=== PATIENT | male | born 1935 | race African-American/Black ===

== ENCOUNTER 2016-12-24 18:29 | Emergency (ER) | payer OTHER, MEDICARE ==
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
--- NOTE | 2016-12-24 19:11 | RADIOLOGY REPORT (SQ) ---
EXAM DESCRIPTION: FOOT LEFT COMPLETE COMPLETED DATE/TIME: 12/24/2016 6:57 pm REASON FOR STUDY: injury COMPARISON: None. NUMBER OF VIEWS: Three views. TECHNIQUE: AP, lateral and oblique radiographic images acquired of the left foot. LIMITATIONS: None. FINDINGS: MINERALIZATION: Normal. BONES: Nondisplaced transverse fracture at the base of the 5th metatarsal. Remainder of the bony str uctures are intact. Nonaggressive lucency in the proximal phalanx of the 1st toe. JOINTS: No effusions. SOFT TISSUES: No soft tissue swelling. No foreign body. OTHER: No other significant finding. IMPRESSION: NONDISPLACED TRANSVERSE FRACTURE AT THE BASE OF THE 5TH METATARSAL. TECHNICAL DOCUMENTATION: JOB ID: [id number] [employer]- All Rights Reserved
--- NOTE | 2016-12-24 19:12 | RADIOLOGY REPORT (SQ) ---
EXAM DESCRIPTION: KNEE BILATERAL 1-2 VIEWS COMPLETED DATE/TIME: 12/24/2016 6:57 pm REASON FOR STUDY: injury COMPARISON: None. NUMBER OF VIEWS: Two views. TECHNIQUE: AP and lateral radiographic images acquired of the right and left knee. LIMITATIONS: None. FINDINGS: MINERALIZATION: Normal. BONES: No acute fracture or dislocation. No worrisome bone lesions. JOINT: No effusion. Bilateral chondrocalcinosis. SOFT TISSUES: No soft tissue swelling. No radio-opaque foreign body. OTHER: No other significant finding. IMPRESSION: CHRONIC CHANGES. CHONDROCALCINOSIS. NO ACUTE TRAUMATIC FINDINGS. TECHNICAL DOCUMENTATION: JOB ID: [id number] [employer]- All Rights Reserved
[2016-12-24] MEDS ORDERED: OXYCODONE-ACETAMINOPHEN 5-325 MG TABLET PO ONE (20:11)
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
[2016-12-24 20:36] VITALS: BP 145/88
== END 2016-12-24 20:27 | disposition home or self-care (01) ==
LOC: ER 18:29
PROC: 2W3TX1Z Immobilization of Left Foot using Splint (ICD-10-PCS; principal; 2016-12-24)
DX: S92.352A Displaced fracture of fifth metatarsal bone, left foot, initial encounter for closed fracture (principal); M25.562 Pain in left knee; V09.3XXA Pedestrian injured in unspecified traffic accident, initial encounter; Y92.524 Gas station as the place of occurrence of the external cause
CPT/HCPCS: 99283

== ENCOUNTER 2017-09-10 14:18 | Emergency (ER) | payer MEDICARE, OTHER ==
[2017-09-10 14:24] VITALS: BP 158/76
--- NOTE | 2017-09-10 14:36 | ER Document Report ---
ED Medical Screen (RME) - General Chief Complaint: Foot Pain Stated Complaint: FOOT PAIN Time Seen by Provider: 09/10/17 14:28 Notes: RAPID MEDICAL EVALUATION DISCLOSURE I have seen this patient as part of a Rapid Medical Evaluation and, if applicable, placed any initially appropriate orders. The patient will be seen and fully evaluated, including a full history and physical exam, by a provider ( in Main ED or Fast Track) when a room becomes available. 81-year-old male here with complaints of pain in his left calf ongoing for the past few days. He was sent here by his doctor because they thought he might have a blood clot. He denies any previous history of blood clot. He has not tried anything for the pain. He denies any shortness of breath or chest pain. EXAM No appreciable left calf TTP CTAB RRR TRAVEL OUTSIDE OF THE [place] IN LAST 30 DAYS: No - Related Data Allergies/Adverse Reactions: No Known Allergies Allergy (Unverified 05/19/16 00:49) Past Medical History - Social History Frequency of alcohol use: None Drug Abuse: None - Past Medical History Cardiac Medical History: Reports: Hx Hypertension Renal/ Medical History: Denies: Hx Peritoneal Dialysis - Immunizations Immunizations up to date: Yes Hx Diphtheria, Pertussis, Tetanus Vaccination: Yes Physical Exam - Vital signs Vitals: Temp Pulse Resp BP Pulse Ox 98.0 F 59 L 16 158/76 H 98 09/10/17 14:22 09/10/17 14:22 09/10/17 14:22 09/10/17 14:22 09/10/17 14:22 Course - Vital Signs Vital signs: Temp Pulse Resp BP Pulse Ox 98.0 F 59 L 16 158/76 H 98 09/10/17 14:22 09/10/17 14:22 09/10/17 14:22 09/10/17 14:22 09/10/17 14:22 Doctor's Discharge - Discharge Referrals: ROBER SCHMID MD [Primary Care Provider] - Follow up as needed
[2017-09-10 14:57] LABS: ABSOLUTE EOSINOPHILS # (AUTO) 0.1 10^3/uL (0.0-0.6); ABSOLUTE LYMPHOCYTES (AUTO) 1.5 10^3/uL (0.5-4.7); ABSOLUTE MONOCYTES (AUTO) 0.3 10^3/uL (0.1-1.4); ABSOLUTE NEUT (AUTO) 2.9 10^3/uL (1.7-8.2); BASOPHILS % (AUTO) 0.6 % (0-2); EOSINOPHILS % (AUTO) 1.9 % (0-6); HEMATOCRIT 47.8 % (37.9-51.0); HEMOGLOBIN 15.7 g/dL (13.5-17.0); MEAN CORPUSCULAR HEMOGLOBIN 27.8 pg (27.0-33.4); MEAN CORPUSCULAR HGB CONC 32.8 g/dL (32.0-36.0); MEAN CORPUSCULAR VOLUME 85 fl (80-97); MONOCYTES % (AUTO) 6.5 % (3-13); PLATELET COUNT 329 10^3/uL (150-450); RED BLOOD COUNT 5.64 10^6/uL (4.35-5.55); TOTAL CELLS COUNTED % (AUTO) 100 %; WHITE BLOOD COUNT 4.9 10^3/uL (4.0-10.5)
[2017-09-10 15:10] LABS: ANION GAP 7 (5-19); BLOOD UREA NITROGEN 13 mg/dL (7-20); CALCIUM 9.8 mg/dL (8.4-10.2); CARBON DIOXIDE 31 mmol/L (22-30); CHLORIDE 105 mmol/L (98-107); GLUCOSE 86 mg/dL (75-110); POTASSIUM 4.2 mmol/L (3.6-5.0); SODIUM 143.1 mmol/L (137-145)
--- NOTE | 2017-09-10 15:50 | ER Document Report ---
ED Extremity Problem, Lower - General Chief Complaint: Foot Pain Stated Complaint: FOOT PAIN Time Seen by Provider: 09/10/17 14:28 Mode of Arrival: Ambulatory Information source: Patient Notes: 81-year-old male presented to ED for complaint of the left ongoing for several days. He states he went to his doctor and they sent him to the emergency room to be evaluated for blood clots. He denies any review his history of blood clots or any cardiac history. Patient denies smoking drinking any long plane trips any long car rides. He states he has been very active states he has been a little sedentary lately. Patient is alert and oriented respirations regular and unlabored and walking with a even steady gait. TRAVEL OUTSIDE OF THE [place] IN LAST 30 DAYS: No - HPI Patient complains to provider of: Pain. No: Injury, Swelling Location: Leg Occurred: Other Onset/Duration: Gradual - Days Quality of pain: Burning, Cramping Severity: Moderate Pain Level: 3 Recent injury: No Exacerbated by: Nothing Relieved by: Nothing - Related Data Allergies/Adverse Reactions: No Known Allergies Allergy (Unverified 05/19/16 00:49) Past Medical History - General Information source: Patient - Social History Smoking Status: Never Smoker Cigarette use (# per day): No Chew tobacco use (# tins/day): No Smoking Education Provided: No Frequency of alcohol use: None Drug Abuse: None Lives with: Family Family History: Reviewed & Not Pertinent Patient has suicidal ideation: No Patient has homicidal ideation: No - Past Medical History Cardiac Medical History: Reports: Hx Hypertension Pulmonary Medical History: Reports: None EENT Medical History: Reports: None Neurological Medical History: Reports: None Endocrine Medical History: Reports: None Renal/ Medical History: Reports: None Malignancy Medical History: Reports None GI Medical History: Reports: None Musculoskeltal Medical History: Reports None Skin Medical History: Reports None Psychiatric Medical History: Reports: None Traumatic Medical History: Reports: None Infectious Medical History: Reports: None Surgical Hx: Negative Past Surgical History: Reports: None - Immunizations Immunizations up to date: Yes Hx Diphtheria, Pertussis, Tetanus Vaccination: Yes Review of Systems - Review of Systems Constitutional: No symptoms reported EENT: No symptoms reported Cardiovascular: No symptoms reported Respiratory: No symptoms reported Gastrointestinal: No symptoms reported Genitourinary: No symptoms reported Male Genitourinary: No symptoms reported Musculoskeletal: Leg swelling Skin: No symptoms reported Hematologic/Lymphatic: No symptoms reported Neurological/Psychological: No symptoms reported Physical Exam - Vital signs Vitals: Temp Pulse Resp BP Pulse Ox 98.0 F 59 L 16 158/76 H 98 09/10/17 14:22 09/10/17 14:22 09/10/17 14:22 09/10/17 14:22 09/10/17 14:22 Interpretation: Normal - General General appearance: Appears well, Alert - HEENT Head: Normocephalic, Atraumatic Eyes: Normal Pupils: PERRL - Respiratory Respiratory status: No respiratory distress Chest status: Nontender Breath sounds: Normal Chest palpation: Normal - Cardiovascular Rhythm: Regular Heart sounds: Normal auscultation Murmur: No - Abdominal Inspection: Normal Distension: No distension Bowel sounds: Normal Tenderness: Nontender Organomegaly: No organomegaly - Back Back: Normal, Nontender - Extremities General upper extremity: Normal inspection, Nontender, Normal color, Normal ROM , Normal temperature General lower extremity: Normal inspection, Normal color, Normal ROM, Normal temperature, Normal weight bearing. No: Amanda's sign Calf: Tender. No: Abrasion, Deformity, Ecchymosis, Instability, Laceration, Unable to bear weight, Other Ankle: Normal, Tender. No: Abrasion, Deformity, Ecchymosis, Edema, Instability , Laceration, Limited ROM, Positive Conteh's test, Unable to bear weight Foot: Normal, Nontender - Neurological Neuro grossly intact: Yes Cognition: Normal Orientation: AAOx4 El Coma Scale Eye Opening: Spontaneous [place] Coma Scale Verbal: Oriented [place] Coma Scale Motor: Obeys Commands El Coma Scale Total: 15 Speech: Normal Motor strength normal: LUE, RUE, LLE, RLE Sensory: Normal - Psychological Associated symptoms: Normal affect, Normal mood - Skin Skin Temperature: Warm Skin Moisture: Dry Skin Color: Normal Course - Re-evaluation Re-evalutation: 09/10/17 17:18 Lab results and venous Doppler results discussed with Dr. Verdugo and with patient and . Written report of labs and venous Doppler given to patient for follow-up with their primary doctor. There is no acute findings at this time. Patient will be discharged home with instructions to continue his normal activity and medications and to call primary doctor on Wednesday for follow-up. Patient and were able to verbalize understanding of instructions and patient was discharged home. - Vital Signs Vital signs: Temp Pulse Resp BP Pulse Ox 98.0 F 59 L 16 158/76 H 98 09/10/17 14:22 09/10/17 14:22 09/10/17 14:22 09/10/17 14:22 09/10/17 14:22 - Laboratory Result Diagrams: 09/10/17 14:47 09/10/17 14:47 Laboratory results interpreted by me: 09/10/17 09/10/17 14:47 14:47 RBC 5.64 H RDW 15.0 H Carbon Dioxide 31 H - Diagnostic Test Radiology reviewed: Image reviewed, Reports reviewed Discharge - Discharge Clinical Impression: Leg pain, left Condition: Stable Disposition: HOME, SELF-CARE Additional Instructions: Leg Pain, Nonspecific We did not find an obvious cause for your leg pain. There's no sign of blood clot, infection, or other serious disease. Possible causes of vague leg pain include muscle or joint inflammation, disc disease in the lower back, pressure on the nerves in the back, or reduced blood flow through the arteries of the leg. Rest the leg. Pain can be eased with an antiinflammatory pain medicine such as ibuprofen. If the pain involves a small area, a heating pad might help. Call the doctor or return if the leg becomes swollen, weak, discolored, or increasingly painful, or if you develop any other significant change in your health. I have discussed your lab results and your Doppler results with you and I have given you a copy of the reports for the labs and the Doppler. You do not have a DVT. Please call your primary doctor on Wednesday and schedule a follow-up appointment and take these labs and Doppler results with you to this appointment. Continue your usual activity and medications until you follow-up with your primary doctor. FOLLOW-UP CARE: If you have been referred to a physician for follow-up care, call the physician s office for an appointment as you were instructed or within the next two days. If you experience worsening or a significant change in your symptoms, notify the physician immediately or return to the Emergency Department at any time for re-evaluation. Forms: Elevated Blood Pressure Referrals: ROBER SCHMID MD [Primary Care Provider] - 09/13/17
--- NOTE | 2017-09-10 16:30 | RADIOLOGY REPORT (SQ) ---
EXAM DESCRIPTION: VENOUS UNILATERAL LOWER COMPLETED DATE/TIME: 09/10/2017 4:20 pm REASON FOR STUDY: LLE pain; eval dVT COMPARISON: None. TECHNIQUE: Dynamic and static cameron scale and color images acquired of the left leg venous system. Se lected spectral images acquired with additional compression and augmentation maneuvers. The contralat eral common femoral vein and saphenofemoral junction were also imaged. Images stored on PACS. LIMITATIONS: None. FINDINGS: LEFT COMMON FEMORAL: Normal phasicity, compression and augmentation. No visualized echogenic material on g ray scale. No defects on color images. FEMORAL: Normal compression and augmentation. No visualized echogenic material on cameron scale. No defe cts on color images. POPLITEAL: Normal compression, augmentation. No visualized echogenic material on cameron scale. No defec ts on color images. CALF VESSELS: Normal compression, augmentation. No visualized echogenic material on cameron scale. No de fects on color images. GSV and SSV: Normal compression, augmentation. No visualized echogenic material on cameron scale. No def ects on color images. ANY DEEP VENOUS INSUFFICIENCY: No reflux on Valsalva ANY EVIDENCE OF POPLITEAL CYST: No. OTHER: No other significant finding. RIGHT COMMON FEMORAL VEIN AND SAPHENOFEMORAL JUNCTION: Normal phasicity, compression and augmentation. No visualized echogenic material on cameron scale. No de fects on color images. IMPRESSION: NO EVIDENCE OF DVT OR SVT IN THE LEFT LEG. TECHNICAL DOCUMENTATION: JOB ID: [id number] [employer]- All Rights Reserved Reading location - IP/workstation name: [facility]
== END 2017-09-10 17:37 | disposition home or self-care (01) ==
LOC: ER 14:18
DX: M79.672 Pain in left foot (principal); I10 Essential (primary) hypertension
CPT/HCPCS: 36415; 80048; 85025; 93971; 99284

== ENCOUNTER 2019-03-18 16:04 | Emergency (ER) | payer OTHER, MEDICARE ==
[2019-03-18 16:16] VITALS: BP 164/98
[2019-03-18] MEDS ORDERED: ACETAMINOPHEN 325 MG TABLET PO ONE (16:17)
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
== END 2019-03-18 18:26 | disposition home or self-care (01) ==
LOC: ER 16:04
DX: M54.2 Cervicalgia (principal); V87.7XXA Person injured in collision between other specified motor vehicles (traffic), initial encounter; I10 Essential (primary) hypertension
CPT/HCPCS: 70450; 72125; 99283

== ENCOUNTER 2019-07-29 17:26 | Inpatient (IN) | payer MEDICARE ==
--- NOTE | 2019-07-29 18:07 | ER Document Report ---
ED General - General Chief Complaint: Near Syncope Stated Complaint: NEAR SYNCOPE Primary Care Provider: ROBER SCHMID MD [Primary Care Provider] - Follow up as needed Information source: Patient Notes: Patient is an 83-year-old gentleman presenting to the emergency department chief complaint of near syncopal episode earlier today. Patient states he has been at his normal state of health. He was seen by his primary care provider a couple of days ago and they found nothing abnormal. Patient states today he was trying to have a bowel movement was a little constipated and ended up on the floor short of breath sweating generalized weakness and could not stand up on his own. Patient denies chest pain denies nausea or vomiting. TRAVEL OUTSIDE OF THE [place] IN LAST 30 DAYS: No - HPI Onset: This afternoon Onset/Duration: Sudden Quality of pain: No pain Severity: Moderate Pain Level: 0 Associated symptoms: Shortness of breath, Weakness, Other - Diaphoretic Exacerbated by: Denies Relieved by: Denies Similar symptoms previously: No Recently seen / treated by doctor: No - Related Data Allergies/Adverse Reactions: No Known Allergies Allergy (Unverified 05/19/16 00:49) Past Medical History - General Information source: Patient - Social History Smoking Status: Unknown if Ever Smoked Chew tobacco use (# tins/day): No Frequency of alcohol use: None Drug Abuse: None Lives with: Family Family History: Reviewed & Not Pertinent Patient has suicidal ideation: No Patient has homicidal ideation: No - Past Medical History Cardiac Medical History: Reports: Hx Hypertension EENT Medical History: Reports: Eyes - Glaucoma Renal/ Medical History: Denies: Hx Peritoneal Dialysis - Immunizations Immunizations up to date: Yes Hx Diphtheria, Pertussis, Tetanus Vaccination: Yes Review of Systems - Review of Systems Notes: REVIEW OF SYSTEMS: CONSTITUTIONAL : Per HPI EENT: Denies eye, ear, throat, or mouth pain or symptoms. Denies nasal or sinus congestion. CARDIOVASCULAR: Denies chest pain. RESPIRATORY: Denies cough, cold, or chest congestion. Denies shortness of br eath, difficulty breathing, or wheezing. GASTROINTESTINAL: Denies abdominal pain. Denies nausea, vomiting, or diarrhea. Denies constipation. GENITOURINARY: Denies difficulty urinating, painful urination, burning, frequency, or blood in urine. MUSCULOSKELETAL: Denies neck or back pain or joint pain or swelling. SKIN: Denies rash or skin lesions. HEMATOLOGIC : Denies easy bruising or bleeding. NEUROLOGICAL: Per HPI PSYCHIATRIC: Denies suicidal or homicidal ideations 10 Systems are negative unless otherwise specified above Physical Exam - Vital signs Vitals: Resp Pulse Ox 17 99 07/29/19 17:36 07/29/19 17:36 - Notes Notes: PHYSICAL EXAMINATION: GENERAL: Well-appearing, well-nourished and in no acute distress. HEAD: Atraumatic, normocephalic. EYES: Pupils equal round and reactive to light, extraocular movements intact, sclera anicteric, conjunctiva are normal. ENT: nares patent, oropharynx clear without exudates. Moist mucous membranes. NECK: Normal range of motion, supple without lymphadenopathy, no appreciable JVD LUNGS: Lungs clear to auscultation bilaterally and equal. No wheezes rales or rhonchi. HEART: Regular rate and rhythm without murmurs ABDOMEN: Soft, nontender, normal bowel sounds. No guarding, no rebound. No masses appreciated. EXTREMITIES: Active full range of motion, no pitting or edema. No cyanosis. 2+ pulses x4 NEUROLOGICAL: At time of evaluation the patient is alert and oriented x3, Glascow coma scale of 15, cranial nerves II through XII are grossly intact, sensations intact, motor is intact, there are no signs of nystagmus, there is no pronator drift, there is no facial asymmetry, tongue protrusion is midline, reflexes are equal and bilateral, patient answers all questions appropriately follows commands appropriately. SKIN: Warm, Dry, and intact. Normal turgor, no rashes or lesions noted. Course - Re-evaluation Re-evalutation: 07/29/19 19:33 Patient has remained stable while in emergency department. I have reviewed the patient's EKG laboratory and radiologic results. I find no significant abnormalities other than the patient's story of near syncope with diaphoresis and shortness of breath and weakness. Because of this and the patient's advanced age I am recommending to the hospitalist that the patient be admitted overnight for serial cardiac enzymes and observation. When speaking with the hospitalist he is agreeable with care plan as is the patient. - Vital Signs Vital signs: Temp Pulse Resp BP Pulse Ox 97.9 F 17 132/76 H 100 07/29/19 17:44 07/29/19 18:01 07/29/19 18:01 07/29/19 18:01 - Laboratory Result Diagrams: 07/29/19 17:35 07/29/19 17:35 Laboratory results interpreted by me: 07/29/19 07/29/19 17:35 17:35 RBC 6.34 H Hct 52.1 H MCH 26.8 L RDW 16.0 H Carbon Dioxide 31 H Anion Gap 4 L BUN 25 H - Diagnostic Test Radiology reviewed: Reports reviewed - EKG Interpretation by Md EKG shows normal: Sinus rhythm Rate: Normal Rhythm: NSR Voltage: Consistant with LVH Additional EKG results interpreted by me: 07/29/19 18:19 EKG shows change compared to prior EKG dated May 19, 2016 there is now Q waves present in lead III LVH is present. Discharge - Discharge Clinical Impression: Near syncope, Diaphoresis, Shortness of breath Condition: Stable Disposition: ADMITTED OBSERVATION Admitting Provider: Loco (Hospitalist) Unit Admitted: Telemetry Referrals: ROBER SCHMID MD [Primary Care Provider] - Follow up as needed
[2019-07-29 18:34] LABS: ABSOLUTE EOSINOPHILS # (AUTO) 0.2 10^3/uL (0.0-0.6); ABSOLUTE LYMPHOCYTES (AUTO) 1.2 10^3/uL (0.5-4.7); ABSOLUTE MONOCYTES (AUTO) 0.6 10^3/uL (0.1-1.4); ABSOLUTE NEUT (AUTO) 4.9 10^3/uL (1.7-8.2); BASOPHILS % (AUTO) 0.5 % (0-2); EOSINOPHILS % (AUTO) 2.3 % (0-6); HEMATOCRIT 52.1 % (37.9-51.0); LYMPHOCYTES % (AUTO) 17.1 % (13-45); MEAN CORPUSCULAR HEMOGLOBIN 26.8 pg (27.0-33.4); MEAN CORPUSCULAR HGB CONC 32.6 g/dL (32.0-36.0); MEAN CORPUSCULAR VOLUME 82 fl (80-97); MONOCYTES % (AUTO) 8.1 % (3-13); PLATELET COUNT 383 10^3/uL (150-450); RED BLOOD COUNT 6.34 10^6/uL (4.35-5.55); TOTAL CELLS COUNTED % (AUTO) 100 %; WHITE BLOOD COUNT 6.8 10^3/uL (4.0-10.5)
[2019-07-29 18:43] LABS: ALBUMIN 3.9 g/dL (3.5-5.0); ALKALINE PHOSPHATASE 78 U/L (38-126); ASPARTATE AMINO TRANSFERASE 32 U/L (17-59); BILIRUBIN,TOTAL 0.9 mg/dL (0.2-1.3); BLOOD UREA NITROGEN 25 mg/dL (7-20); CALCIUM 10.2 mg/dL (8.4-10.2); CHLORIDE 107 mmol/L (98-107); CREATINE KINASE 80 U/L (55-170); GLUCOSE 105 mg/dL (75-110); POTASSIUM 4.8 mmol/L (3.6-5.0)
[2019-07-29 18:49] LABS: CARBON DIOXIDE 31 mmol/L (22-30)
[2019-07-29 18:50] LABS: ANION GAP 4 (5-19)
--- NOTE | 2019-07-29 18:53 | RADIOLOGY REPORT (SQ) ---
EXAM DESCRIPTION: CHEST SINGLE VIEW IMAGES COMPLETED DATE/TIME: 07/29/2019 6:36 pm REASON FOR STUDY: syncope COMPARISON: 12/11/2010. NUMBER OF VIEWS: One view. TECHNIQUE: Single frontal radiographic view of the chest acquired. LIMITATIONS: None. FINDINGS: LUNGS AND PLEURA: No opacities, masses or pneumothorax. No pleural effusion. Attenuated bl ood vessels and flattened kayode-diaphragms. MEDIASTINUM AND HILAR STRUCTURES: No masses. Contour normal. HEART AND VASCULAR STRUCTURES: Heart normal in size. Normal vasculature. BONES: No acute findings. HARDWARE: None in the chest. OTHER: No other significant finding. IMPRESSION: COPD. NO ACUTE RADIOGRAPHIC FINDING IN THE CHEST. TECHNICAL DOCUMENTATION: JOB ID: [id number] 2010 [employer]- All Rights Reserved Reading location - IP/workstation name: [email or web address]
[2019-07-29 18:56] LABS: CREATINE KINASE MB 0.97 ng/mL (<4.55)
--- NOTE | 2019-07-29 18:57 | RADIOLOGY REPORT (SQ) ---
EXAM DESCRIPTION: CT HEAD WITHOUT IMAGES COMPLETED DATE/TIME: 07/29/2019 6:43 pm REASON FOR STUDY: syncope COMPARISON: 03/18/2019. TECHNIQUE: Axial images acquired through the brain without intravenous contrast. Images reviewed wi th bone, brain and subdural windows. Additional sagittal and coronal reconstructions were generated. Images stored on PACS. All CT scanners at this facility use dose modulation, iterative reconstruction, and/or weight based d osing when appropriate to reduce radiation dose to as low as reasonably achievable (ALARA). [facility]: Dose Right [facility]: CareDose [facility]: Dose Right [facility]: Teradose 4D [facility]: Smart [employer] RADIATION DOSE: CT Rad equipment meets quality standard of care and radiation dose reduction techniq ues were employed. CTDIvol: 53.2 mGy. DLP: 911 mGy-cm. mGy. LIMITATIONS: None. FINDINGS: VENTRICLES: Normal size and contour. CEREBRUM: No masses. No hemorrhage. No midline shift. No evidence for acute infarction. Normal gra y/white matter differentiation. No areas of low density in the white matter. CEREBELLUM: No masses. No hemorrhage. No alteration of density. No evidence for acute infarction. EXTRAAXIAL SPACES: No fluid collections. No masses. ORBITS AND GLOBE: No intra- or extraconal masses. Normal contour of globe without masses. CALVARIUM: No fracture. PARANASAL SINUSES: No fluid or mucosal thickening. SOFT TISSUES: No mass or hematoma. OTHER: No other significant finding. IMPRESSION: NORMAL BRAIN CT WITHOUT CONTRAST. EVIDENCE OF ACUTE STROKE: NO. COMMENT: Quality ID # [id number]: Final reports with documentation of one or more dose reduction techniques (e.g., Automated exposure control, adjustment of the mA and/or kV according to patient size, use of iterative reconstruction technique) TECHNICAL DOCUMENTATION: JOB ID: [id number] 2010 [employer]- All Rights Reserved Reading location - IP/workstation name: [email or web address]
[2019-07-29 18:58] LABS: TROPONIN I < 0.012 ng/mL
[2019-07-29] MEDS ORDERED: NORMAL SALINE 1000 ML 1,000 ML IV ONE (19:30)
[2019-07-29] MEDS ORDERED: IPRATROPIUM/ALBUTEROL 0.5-2.5 MG/3 ML AMPUL NEB PRN (19:31)
[2019-07-29] MEDS ORDERED: LACTULOSE SYRUP 20 GM/30 ML UDCUP PO ONE (19:31)
[2019-07-29] MEDS ORDERED: MAG HYDROX/AL HYDROX/SIMETH SUSP 30 ML UDCUP PO PRN (19:31)
[2019-07-29] MEDS ORDERED: MAGNESIUM HYDROXIDE SUSP 30 ML UDCUP PO PRN (19:31)
[2019-07-29] MEDS ORDERED: ACETAMINOPHEN 325 MG TABLET PO PRN (19:31)
[2019-07-29] MEDS ORDERED: MINERAL OIL ENEMA 133 ML PR ONE ×2 (19:31→21:55)
[2019-07-29 19:58] LABS: APPEARANCE,URINE SLIGHTLY-CLOUDY; BILIRUBIN,URINE NEGATIVE (NEGATIVE); COLOR,URINE YELLOW; GLUCOSE, URINE NEGATIVE (NEGATIVE); KETONES,URINE TRACE mg/dL (NEGATIVE); LEUKOCYTE ESTERASE,URINE NEGATIVE (NEGATIVE); NITRITE,URINE NEGATIVE (NEGATIVE); PROTEIN,URINE 100 mg/dL (NEGATIVE); URINE SPECIFIC GRAVITY 1.021; UROBILINOGEN,URINE NEGATIVE mg/dL (<2.0)
[2019-07-29] MEDS: NORMAL SALINE 1000 ML 1,000 ML IV PRN (21:24)
--- NOTE | 2019-07-29 21:44 | EKG REPORT ---
SEVERITY:- ABNORMAL ECG - SINUS RHYTHM LEFT ANTERIOR FASCICULAR BLOCK CONSIDER LEFT VENTRICULAR HYPERTROPHY : Confirmed by: Carisa Hale MD 29-Jul-2019 21:43:40
[2019-07-29 21:58] LABS: CREATINE KINASE MB 1.16 ng/mL (<4.55)
[2019-07-29 21:59] LABS: TROPONIN I < 0.012 ng/mL
[2019-07-29] MEDS: HEPARIN SOD (PORCINE) 5,000 UNIT/ML 1 ML VIAL SUBCUT SCH (22:25)
[2019-07-30] MEDS ORDERED: GLUCAGON,HUMAN RECOMB 1 MG INJ SUBCUT ONE (02:15)
[2019-07-30] MEDS ORDERED: IPRATROPIUM/ALBUTEROL 0.5-2.5 MG/3 ML AMPUL NEB ONE (02:15)
[2019-07-30] MEDS: NORMAL SALINE 1000 ML 1,000 ML IV PRN (02:48)
[2019-07-30] MEDS: HEPARIN SOD (PORCINE) 5,000 UNIT/ML 1 ML VIAL SUBCUT SCH ×3 (05:15→22:05)
[2019-07-30 05:55] LABS: ABSOLUTE EOSINOPHILS # (AUTO) 0.2 10^3/uL (0.0-0.6); ABSOLUTE LYMPHOCYTES (AUTO) 1.5 10^3/uL (0.5-4.7); ABSOLUTE NEUT (AUTO) 5.9 10^3/uL (1.7-8.2); LYMPHOCYTES % (AUTO) 17.5 % (13-45); MEAN CORPUSCULAR VOLUME 82 fl (80-97); TOTAL CELLS COUNTED % (AUTO) 100 %; WHITE BLOOD COUNT 8.3 10^3/uL (4.0-10.5)
[2019-07-30 06:04] LABS: ABSOLUTE MONOCYTES (AUTO) 0.7 10^3/uL (0.1-1.4); BASOPHILS % (AUTO) 0.5 % (0-2); EOSINOPHILS % (AUTO) 2.1 % (0-6); HEMATOCRIT 44.7 % (37.9-51.0); MEAN CORPUSCULAR HEMOGLOBIN 27.8 pg (27.0-33.4); MONOCYTES % (AUTO) 8.9 % (3-13); PLATELET COUNT 313 10^3/uL (150-450); RED BLOOD COUNT 5.46 10^6/uL (4.35-5.55); RED CELL DISTRIBUTION WIDTH 15.5 % (11.5-14.0)
[2019-07-30 06:06] LABS: HEMOGLOBIN 15.2 g/dL (13.5-17.0)
[2019-07-30 06:13] LABS: ANION GAP 5 (5-19); CALCIUM 9.1 mg/dL (8.4-10.2); CARBON DIOXIDE 26 mmol/L (22-30); CHLORIDE 110 mmol/L (98-107); GLUCOSE 75 mg/dL (75-110); POTASSIUM 3.9 mmol/L (3.6-5.0)
[2019-07-30 06:14] LABS: BLOOD UREA NITROGEN 21 mg/dL (7-20)
[2019-07-30 06:18] LABS: CREATINE KINASE MB 0.92 ng/mL (<4.55)
[2019-07-30 06:19] LABS: TROPONIN I < 0.012 ng/mL
--- NOTE | 2019-07-30 06:41 | PDOC H&P ---
History of Present Illness Admission Date/PCP: 07/29/19 19:43 ROBER SCHMID MD Patient complains of: Presyncope History of Present Illness: MORA ARREDONDO is a 83 year old male with a past medical history of constipation who sought evaluation by primary care whom he believes prescribed an unknown laxative. He presents today after an episode of near syncope after straining for a bowel movement. He complained of dizziness shortness of breath and inability to stand up. He denies previous episode, pain, nausea or vomiting. In the emergency department he is found to have an unremarkable work- up with exception to positive orthostatic blood pressure and a resting heart rate in the 40s. He is referred to the hospitalist for admission. Patient is a poor historian overall and admits to some [id number] medications of unknown name or purpose. Past Medical History Cardiac Medical History: Reports: Hypertension EENT Medical History: Reports: Eyes - Glaucoma Social History Information Source: Patient Lives with: Family Smoking Status: Never Smoker Drugs: None - Advance Directive Resuscitation Status: Full Code Family History Family History: Hypertension Parental Family History Reviewed: Yes Children Family History Reviewed: Yes Sibling(s) Family History Reviewed.: Yes Medication/Allergy Home Medications: Oxycodone HCl/Acetaminophen [Percocet 2.5-325 Mg Tablet] 1 tab PO Q6HP PRN #12 tablet 12/24/16 Wheelchair 1 each MC PRN PRN 14 Days #1 each 12/24/16 Cetirizine HCl [Zyrtec 10 mg Tablet] 1 tab PO DAILY #30 tablet 01/07/17 Allergies/Adverse Reactions: No Known Allergies Allergy (Unverified 05/19/16 00:49) Review of Systems Constitutional: ABSENT: chills, fever(s), headache(s), weight gain, weight loss Eyes: ABSENT: visual disturbances Ears: ABSENT: hearing changes Cardiovascular: ABSENT: chest pain, dyspnea on exertion, edema, orthropnea, palpitations Respiratory: ABSENT: cough, hemoptysis Gastrointestinal: PRESENT: constipation. ABSENT: abdominal pain, diarrhea, hematemesis, hematochezia, nausea, vomiting Genitourinary: ABSENT: dysuria, hematuria Musculoskeletal: ABSENT: joint swelling Integumentary: ABSENT: rash, wounds Neurological: ABSENT: abnormal gait, abnormal speech, confusion, dizziness, focal weakness, syncope Psychiatric: ABSENT: anxiety, depression, homidical ideation, suicidal ideation Endocrine: ABSENT: cold intolerance, heat intolerance, polydipsia, polyuria Hematologic/Lymphatic: ABSENT: easy bleeding, easy bruising Physical Exam Vital Signs: Temp Pulse Resp BP Pulse Ox 97.8 F 43 L 18 111/53 L 98 07/30/19 04:41 07/30/19 04:41 07/30/19 04:41 07/30/19 04:41 07/30/19 04:41 Intake & Output 07/28/19 07/29/19 07/30/19 11:59 11:59 11:59 Intake Total 1000 Balance 1000 Weight 54.1 kg General appearance: PRESENT: no acute distress, cooperative, thin, well- developed, well-nourished Head exam: PRESENT: atraumatic, normocephalic Eye exam: PRESENT: conjunctiva pink, EOMI, PERRLA. ABSENT: scleral icterus Ear exam: PRESENT: normal external ear exam Mouth exam: PRESENT: moist, tongue midline Neck exam: ABSENT: carotid bruit, JVD, lymphadenopathy, thyromegaly Respiratory exam: PRESENT: clear to auscultation argenis. ABSENT: rales, rhonchi, wheezes Cardiovascular exam: PRESENT: bradycardia, RRR. ABSENT: diastolic murmur, rubs, systolic murmur Pulses: PRESENT: normal dorsalis pedis pul Vascular exam: PRESENT: normal capillary refill GI/Abdominal exam: PRESENT: hypoactive bowel sounds, normal bowel sounds, soft. ABSENT: distended, guarding, mass, organolmegaly, rebound, tenderness Rectal exam: PRESENT: deferred Extremities exam: PRESENT: full ROM. ABSENT: calf tenderness, clubbing, pedal edema Neurological exam: PRESENT: alert, awake, oriented to person, oriented to place, oriented to time, oriented to situation, CN II-XII grossly intact. ABSENT: motor sensory deficit Psychiatric exam: PRESENT: appropriate affect, normal mood. ABSENT: homicidal ideation, suicidal ideation Skin exam: PRESENT: dry, intact, warm. ABSENT: cyanosis, rash Results Laboratory Results: 07/30/19 05:35 07/30/19 05:35 07/29/19 07/29/19 07/29/19 17:35 17:35 19:40 WBC 6.8 RBC 6.34 H Hgb 17.0 Hct 52.1 H MCV 82 MCH 26.8 L MCHC 32.6 RDW 16.0 H Plt Count 383 Seg Neutrophils % 72.0 Sodium 141.9 Potassium 4.8 Chloride 107 Carbon Dioxide 31 H Anion Gap 4 L BUN 25 H Creatinine 1.00 Est GFR ( Amer) > 60 Glucose 105 Calcium 10.2 Total Bilirubin 0.9 AST 32 Alkaline Phosphatase 78 Total Protein 7.0 Albumin 3.9 Urine Color YELLOW Urine Appearance SLIGHTLY-CLOUDY Urine pH 5.0 Ur Specific [place] 1.021 Urine Protein 100 H Urine Glucose (UA) NEGATIVE Urine Ketones TRACE H Urine Blood SMALL H Urine Nitrite NEGATIVE Ur Leukocyte Esterase NEGATIVE Urine WBC (Auto) 3 Urine RBC (Auto) 1 07/30/19 07/30/19 05:35 05:35 WBC 8.3 RBC 5.46 Hgb 15.2 Hct 44.7 MCV 82 MCH 27.8 MCHC 34.0 RDW 15.5 H Plt Count 313 Seg Neutrophils % 71.0 Sodium 140.9 Potassium 3.9 Chloride 110 H Carbon Dioxide 26 Anion Gap 5 BUN 21 H Creatinine 0.75 Est GFR ( Amer) > 60 Glucose 75 Calcium 9.1 Total Bilirubin AST Alkaline Phosphatase Total Protein Albumin Urine Color Urine Appearance Urine pH Ur Specific [place] Urine Protein Urine Glucose (UA) Urine Ketones Urine Blood Urine Nitrite Ur Leukocyte Esterase Urine WBC (Auto) Urine RBC (Auto) 07/29/19 07/29/19 07/29/19 17:35 17:35 21:00 Creatine Kinase 80 CK-MB (CK-2) 0.97 1.16 Troponin I < 0.012 < 0.012 07/29/19 07/30/19 07/30/19 21:00 05:35 05:35 Creatine Kinase 70 56 CK-MB (CK-2) 0.92 Troponin I < 0.012 Impressions: Chest X-Ray 07/29/19 18:20 IMPRESSION: COPD. NO ACUTE RADIOGRAPHIC FINDING IN THE CHEST. Head CT 07/29/19 18:20 IMPRESSION: NORMAL BRAIN CT WITHOUT CONTRAST. EVIDENCE OF ACUTE STROKE: NO. Assessment and Plan - Diagnosis (1) Bradycardia Is this a current diagnosis for this admission?: Yes Plan: Symptomatic sinus bradycardia with exertion, possibly secondary to medications, telemetry admission, follow-up cardiac enzymes, TSH and cardiology consult. (2) Constipation Is this a current diagnosis for this admission?: Yes Plan: Fleet enema, lactulose and Metamucil daily (3) Near syncope Is this a current diagnosis for this admission?: Yes Plan: Likely vasovagal strain of attempted bowel movement though clearly complicated by bradycardia. Follow-up telemetry, orthostatic blood pressures and cardiology consult - Time Time Spent with patient: 25-34 minutes - Inpatient Certification Medical Necessity: Need Close Monitoring Due to Risk of Patient Decompensation
[2019-07-30] MEDS: PSYLLIUM SEED-SF 5.85 GM PACKET PO SCH (09:42)
--- NOTE | 2019-07-30 10:52 | PDOC PROGRESS REPORT ---
Subjective Progress Note for:: 07/30/19 Subjective:: Today patient is doing well. However overnight patient has been noted to be bradycardic with heart rates mostly in the 30s to 40s. This morning patient's heart rate was in the 30s while awake. He was not symptomatic at the time. On my encounter this morning his heart rate had bounced back up to the 50s to 60s after drinking some caffeinated drinks. He endorses no shortness of breath lightheadedness or dizziness at this time. Reason For Visit: PRE SYNCOPE Physical Exam Vital Signs: Temp Pulse Resp BP Pulse Ox 98.0 F 36 L 18 127/62 H 99 07/30/19 07:34 07/30/19 07:34 07/30/19 07:34 07/30/19 07:34 07/30/19 07:34 Intake & Output 07/29/19 07/30/19 07/31/19 06:59 06:59 06:59 Intake Total 2350 240 Balance 2350 240 Weight 54.1 kg General appearance: PRESENT: no acute distress, cooperative Neck exam: ABSENT: JVD Respiratory exam: PRESENT: clear to auscultation argenis, unlabored. ABSENT: rhonchi, tachypnea, wheezes Cardiovascular exam: PRESENT: bradycardia, +S1, +S2. ABSENT: irregular rhythm, systolic murmur, tachycardia GI/Abdominal exam: PRESENT: soft. ABSENT: rebound, rigid, tenderness Neurological exam: PRESENT: alert, awake, oriented to person, oriented to place, oriented to time, oriented to situation Results Laboratory Results: 07/30/19 05:35 07/30/19 05:35 07/29/19 07/29/19 07/29/19 17:35 17:35 19:40 WBC 6.8 RBC 6.34 H Hgb 17.0 Hct 52.1 H MCV 82 MCH 26.8 L MCHC 32.6 RDW 16.0 H Plt Count 383 Seg Neutrophils % 72.0 Sodium 141.9 Potassium 4.8 Chloride 107 Carbon Dioxide 31 H Anion Gap 4 L BUN 25 H Creatinine 1.00 Est GFR ( Amer) > 60 Glucose 105 Calcium 10.2 Total Bilirubin 0.9 AST 32 Alkaline Phosphatase 78 Total Protein 7.0 Albumin 3.9 TSH Urine Color YELLOW Urine Appearance SLIGHTLY-CLOUDY Urine pH 5.0 Ur Specific [place] 1.021 Urine Protein 100 H Urine Glucose (UA) NEGATIVE Urine Ketones TRACE H Urine Blood SMALL H Urine Nitrite NEGATIVE Ur Leukocyte Esterase NEGATIVE Urine WBC (Auto) 3 Urine RBC (Auto) 1 07/30/19 07/30/19 07/30/19 05:35 05:35 05:35 WBC 8.3 RBC 5.46 Hgb 15.2 Hct 44.7 MCV 82 MCH 27.8 MCHC 34.0 RDW 15.5 H Plt Count 313 Seg Neutrophils % 71.0 Sodium 140.9 Potassium 3.9 Chloride 110 H Carbon Dioxide 26 Anion Gap 5 BUN 21 H Creatinine 0.75 Est GFR ( Amer) > 60 Glucose 75 Calcium 9.1 Total Bilirubin AST Alkaline Phosphatase Total Protein Albumin TSH 1.32 Urine Color Urine Appearance Urine pH Ur Specific [place] Urine Protein Urine Glucose (UA) Urine Ketones Urine Blood Urine Nitrite Ur Leukocyte Esterase Urine WBC (Auto) Urine RBC (Auto) 07/29/19 07/29/19 07/29/19 17:35 17:35 21:00 Creatine Kinase 80 CK-MB (CK-2) 0.97 1.16 Troponin I < 0.012 < 0.012 07/29/19 07/30/19 07/30/19 21:00 05:35 05:35 Creatine Kinase 70 56 CK-MB (CK-2) 0.92 Troponin I < 0.012 Impressions: Chest X-Ray 07/29/19 18:20 IMPRESSION: COPD. NO ACUTE RADIOGRAPHIC FINDING IN THE CHEST. Head CT 07/29/19 18:20 IMPRESSION: NORMAL BRAIN CT WITHOUT CONTRAST. EVIDENCE OF ACUTE STROKE: NO. Assessment and Plan - Diagnosis (1) Bradycardia Is this a current diagnosis for this admission?: Yes Plan: Symptomatic sinus bradycardia given near syncopal episode during defecation. Likely sinus node dysfunction. I have reviewed cardiac monitor technician today which indicates several episodes of sinus bradycardia into the 30s mostly and sometimes in the 40s while sleeping last night but also while awake this morning. He may meet indication for pacemaker due to this. TSH, troponin are normal. EKG shows sinus bradycardia with no evidence of AV block. Discussed case with cardiology and recommended echocardiogram. Patient currently trying to confirm his medications with his daughter but sounds like he only takes medication for BPH and one for constipation which are unlikely to contribute to bradycardia. Heart rate did respond adequately on ambulation this morning going into the 60s to a 70s. (2) Near syncope Is this a current diagnosis for this admission?: Yes Plan: Likely vasovagal strain of attempted bowel movement though clearly complicated by underlying sinus bradycardia. States that he is on medication for BPH but orthostatic vital signs have been done several times and have all been negative. Plan as above. (3) Constipation Qualifiers: Constipation type: unspecified constipation type Qualified Code(s): K59.00 - Constipation, unspecified Is this a current diagnosis for this admission?: Yes Plan: lactulose and Metamucil daily - Time Time Spent with patient: 15-24 minutes
--- NOTE | 2019-07-30 14:33 | XCELERA REPORT ---
[address] [address] Transthoracic Echocardiogram Report Name: MORA ARREDONDO Age: 83 yrs Gender: Male : 1935 Patient Status: Inpatient Patient Location: [address] [place], [place] [address] Study Date: 07/30/2019 10:12 AM Height: 66 in Weight: 119 lb BSA: 1.6 m2 Procedure: A complete two-dimensional transthoracic echocardiogram was performed (2D, M-mode, spectral and color flow Doppler). Study Quality: Good. Reason For Study: bradycardia. Dr. Burris to read Ordering Physician: DIANA DING Performed By: Yamilet Toledo Interpretation Summary The left ventricle is normal in size, thickness and function. Left ventricular systolic function is normal. The Ejection Fraction estimate is 50-55%. Doppler measurements suggest normal left ventricular diastolic function. The left ventricular wall motion is normal. There is no thrombus. Trace MR, trace TR, trace PI. No prior studies for comparison. MMode/2D Measurements & Calculations RVDd: 2.1 cm LVIDd: 4.6 cm FS: 21.6 % Ao root diam: 3.1 cm IVSd: 0.77 cm LVIDs: 3.6 cm EDV(Teich): Ao root area: 98.1 ml LVPWd: 0.96 cm 7.5 cm2 ESV(Teich): 55.0 ml EF(Teich): 43.9 % EDV(MOD-sp4): SV(MOD-sp4): 77.0 ml 43.7 ml ESV(MOD-sp4): 33.3 ml EF(MOD-sp4): 56.8 % Doppler Measurements & Calculations MV E max alexx: MV dec slope: Ao V2 max: LV V1 max P.1 cm/sec 94.7 cm/sec 1.9 mmHg MV A max alexx: 345.0 cm/sec2 Ao max PG: LV V1 max: 74.0 cm/sec MV dec time: 0.21 sec 3.6 mmHg 69.5 cm/sec MV E/A: 0.96 PA V2 max: TR max alexx: 45.3 cm/sec 260.0 cm/sec PA max PG: TR max P.5 mmHg 0.82 mmHg Left Ventricle The left ventricle is normal in size, thickness and function. Left ventricular systolic function is normal. The Ejection Fraction estimate is 50-55%. Doppler measurements suggest normal left ventricular diastolic function. The left ventricular wall motion is normal. There is no thrombus. Right Ventricle The right ventricle is normal in size, thickness and function. The right ventricular systolic function is normal. Atria The right atrium is normal. The left atrial size is normal. Mitral Valve The mitral valve is normal in structure and function. There is no mitral valve stenosis. There is a trace amount of mitral regurgitation. Aortic Valve The aortic valve is not well visualized secondary to technical limitations. There is no aortic valve stenosis. No aortic regurgitation is present. Tricuspid Valve The tricuspid is normal in structure and function. There is no tricuspid stenosis. There is a trace or physiologic amount of tricuspid regurgitation. Pulmonic Valve The pulmonic valve is not well seen, but is grossly normal. There is a trace amount of pulmonic regurgitation. Effusions There is no pericardial effusion. There is no pleural effusion. : DIANA DING Antonio
[2019-07-30] MEDS ORDERED: SCOPOLAMINE HYDROBROMIDE 1.5 MG PATCH.TD72 TD ONE (16:28)
[2019-07-30] MEDS ORDERED: SCOPOLAMINE HYDROBROMIDE 1.5 MG PATCH.TD72 ONE (16:53)
[2019-07-30] MEDS ORDERED: ATROPINE SULFATE INJ 1 MG/10 ML DISP.SYRIN IV PRN (17:49)
[2019-07-30] MEDS ORDERED: MONTELUKAST SODIUM 10 MG TABLET PO SCH (18:00)
[2019-07-30] MEDS ORDERED: TAMSULOSIN HCL 0.4 MG CAP.SR.24H PO SCH (18:00)
[2019-07-30] MEDS ORDERED: LATANOPROST 0.005% OPH SOLN 2.5 ML OU SCH (22:00)
[2019-07-31 05:43] LABS: BLOOD UREA NITROGEN 17 mg/dL (7-20); CALCIUM 9.5 mg/dL (8.4-10.2); GLUCOSE 87 mg/dL (75-110); PHOSPHORUS 3.1 mg/dL (2.5-4.5); POTASSIUM 4.8 mmol/L (3.6-5.0)
[2019-07-31 05:48] LABS: CARBON DIOXIDE 31 mmol/L (22-30); CHLORIDE 106 mmol/L (98-107)
[2019-07-31] MEDS: HEPARIN SOD (PORCINE) 5,000 UNIT/ML 1 ML VIAL SUBCUT SCH (05:49)
[2019-07-31 05:51] LABS: ANION GAP 2 (5-19)
[2019-07-31] MEDS ORDERED: ASPIRIN 81 MG TABLET, ENT COATED PO SCH (08:00)
[2019-07-31] MEDS ORDERED: FINASTERIDE 5 MG TABLET PO SCH (10:00)
[2019-07-31] MEDS ORDERED: FLUTICASONE NASAL SPRAY 50 MCG/SPRY 120 SPRAY/16 GM NASL SCH (10:00)
[2019-07-31] MEDS: PSYLLIUM SEED-SF 5.85 GM PACKET PO SCH (10:01)
--- NOTE | 2019-07-31 11:15 | PDOC CONSULTATION ---
Consultation Consult Date: 07/31/19 Attending physician:: DIANA DING Provider Consulted: VY FRAGA Consult reason:: Bradycardia History of Present Illness Admission Date/PCP: 07/29/19 19:43 ROBER SCHMID MD History of Present Illness: MORA ARREDONDO is a 83 year old male with a past medical history of constipation and prior evaluation for vasovagal syncope in 2017 who is consulted to our service for presyncope. The patient presented to [facility] after an episode of near syncope after trying to use the bathroom however the patient specifically denied to me any straining at the time. He complained of dizziness shortness of breath and inability to stand up. Since admission the patient has remained asymptomatic and without recurrence of index symptoms. His telemetry shows persistent sinus bradycardia even when the patient is awake. Physical exam on 07/31/2019: GENERAL: Pleasant and conversational. Oriented x3 with normal mood. Not in acute distress. Well groomed and well developed. HEENT: Normocephalic, atraumatic. Pupils equal. Sclerae anicteric. Oropharynx moist. NECK: No JVD. No carotid bruits. LUNGS: Clear to auscultation bilaterally. Normal respiratory effort without the use of accessory muscles or intercostal retractions. CARDIOVASCULAR: Bradycardic. Regular rate and rhythm, normal S1 and S2 without murmurs, rubs, or gallops. PMI not displaced. EXTREMITIES: No edema, no cyanosis, no clubbing. +2 pulses femoral and pedal pulses bilaterally. SKIN: No lesions or rashes. MUSCULOSKELETAL: No chest tenderness to palpation. NEUROLOGIC: Nonfocal. No gross sensory or motor deficits bilateral upper or lower extremities. Past Medical History Cardiac Medical History: Reports: Hypertension EENT Medical History: Reports: Eyes - Glaucoma Social History Lives with: Family Smoking Status: Never Smoker Drugs: None - Advance Directive Resuscitation Status: Full Code Family History Family History: Hypertension Parental Family History Reviewed: Yes Children Family History Reviewed: Yes Sibling(s) Family History Reviewed.: Yes Medication/Allergy Home Medications: Aspirin [Adult Low Dose Aspirin EC] 81 mg PO QAM 07/30/19 Carboxymethylcellulos/Glycerin [Refresh Relieva 0.5-0.9% Drop] 1 drop OU DAILYP PRN 07/30/19 Cyanocobalamin (Vitamin B-12) [Vitamin B-12] 100 mcg PO QAM 07/30/19 Finasteride [Proscar 5 mg Tablet] 5 mg PO DAILY 07/30/19 Fluticasone Propionate [Flonase Nasal [place] 50 Mcg/[place] 16 gm] 2 spray NASL DAILY 07/30/19 Latanoprost [Xalatan 0.005% Oph Soln 2.5 ml] 1 drop OU QHS 07/30/19 Montelukast Sodium [Singulair 10 mg Tablet] 10 mg PO QPM 07/30/19 Tamsulosin HCl [Flomax 0.4 mg Cap.sr] 0.4 mg PO QPM 07/30/19 Timolol Maleate [Timoptic 0.5% Oph Soln 5 ml] 1 drop OU BID 07/30/19 Allergies/Adverse Reactions: No Known Allergies Allergy (Unverified 05/19/16 00:49) Physical Exam Vital Signs: Temp Pulse Resp BP Pulse Ox 97.4 F 42 L 14 120/67 98 07/31/19 03:28 07/31/19 03:28 07/31/19 03:28 07/31/19 03:28 07/31/19 03:28 Intake & Output 07/30/19 07/31/19 08/01/19 06:59 06:59 06:59 Intake Total 2350 916 Balance 2350 916 Weight 54.1 kg 54.1 kg Results Laboratory Results: 07/30/19 05:35 07/31/19 04:59 07/31/19 04:59 Sodium 138.6 Potassium 4.8 Chloride 106 Carbon Dioxide 31 H Anion Gap 2 L BUN 17 Creatinine 1.00 Est GFR ( Amer) > 60 Glucose 87 Calcium 9.5 Phosphorus 3.1 Magnesium 2.0 07/29/19 07/29/19 07/29/19 17:35 17:35 21:00 Creatine Kinase 80 CK-MB (CK-2) 0.97 1.16 Troponin I < 0.012 < 0.012 07/29/19 07/30/19 07/30/19 21:00 05:35 05:35 Creatine Kinase 70 56 CK-MB (CK-2) 0.92 Troponin I < 0.012 Impressions: Chest X-Ray 07/29/19 18:20 IMPRESSION: COPD. NO ACUTE RADIOGRAPHIC FINDING IN THE CHEST. Head CT 07/29/19 18:20 IMPRESSION: NORMAL BRAIN CT WITHOUT CONTRAST. EVIDENCE OF ACUTE STROKE: NO. 07/30/19 05:35 07/31/19 04:59 MCV 82 fl (80-97) 07/30/19 05:35 MCH 27.8 pg (27.0-33.4) 07/30/19 05:35 MCHC 34.0 g/dL (32.0-36.0) 07/30/19 05:35 RDW 15.5 % (11.5-14.0) H 07/30/19 05:35 Seg Neutrophils % 71.0 % (42-78) 07/30/19 05:35 Chloride 106 mmol/L (98-107) 07/31/19 04:59 Carbon Dioxide 31 mmol/L (22-30) H 07/31/19 04:59 Anion Gap 2 (5-19) L 07/31/19 04:59 Est GFR ( Amer) > 60 (>60) 07/31/19 04:59 Glucose 87 mg/dL (75-110) 07/31/19 04:59 Calcium 9.5 mg/dL (8.4-10.2) 07/31/19 04:59 Phosphorus 3.1 mg/dL (2.5-4.5) 07/31/19 04:59 Magnesium 2.0 mg/dL (1.6-2.3) 07/31/19 04:59 Total Bilirubin 0.9 mg/dL (0.2-1.3) 07/29/19 17:35 AST 32 U/L (17-59) 07/29/19 17:35 Alkaline Phosphatase 78 U/L (38-126) 07/29/19 17:35 Total Protein 7.0 g/dL (6.3-8.2) 07/29/19 17:35 Albumin 3.9 g/dL (3.5-5.0) 07/29/19 17:35 TSH 1.32 uIU/mL (0.47-4.68) 07/30/19 05:35 Urine Color YELLOW 07/29/19 19:40 Urine Appearance SLIGHTLY-CLOUDY 07/29/19 19:40 Urine pH 5.0 (5.0-9.0) 07/29/19 19:40 Ur Specific [place] 1.021 07/29/19 19:40 Urine Protein 100 mg/dL (NEGATIVE) H 07/29/19 19:40 Urine Glucose (UA) NEGATIVE mg/dL (NEGATIVE) 07/29/19 19:40 Urine Ketones TRACE mg/dL (NEGATIVE) H 07/29/19 19:40 Urine Blood SMALL (NEGATIVE) H 07/29/19 19:40 Urine Nitrite NEGATIVE (NEGATIVE) 07/29/19 19:40 Ur Leukocyte Esterase NEGATIVE (NEGATIVE) 07/29/19 19:40 Urine WBC (Auto) 3 /HPF 07/29/19 19:40 Urine RBC (Auto) 1 /HPF 07/29/19 19:40 07/29/19 07/29/19 07/29/19 17:35 17:35 21:00 Creatine Kinase 80 CK-MB (CK-2) 0.97 1.16 Troponin I < 0.012 < 0.012 07/29/19 07/30/19 07/30/19 21:00 05:35 05:35 Creatine Kinase 70 56 CK-MB (CK-2) 0.92 Troponin I < 0.012 Current Medication List Generic Name Dose Route Start Last Admin Trade Name Freq PRN Reason Stop Dose Admin Acetaminophen 650 mg 07/29/19 19:31 Tylenol 325 Mg Tablet PO 08/28/19 19:30 Q4HP PRN FOR HEADACHE OR PAIN Al Hydrox/Mg Hydrox/Simethicone 30 ml 07/29/19 19:31 Maalox Plus Susp 30 Udcup PO 08/28/19 19:30 Q6HP PRN HEARTBURN Albuterol/Ipratropium 3 ml 07/29/19 19:31 07/30/19 02:10 Duoneb 3 Ml Ampul NEB 08/28/19 19:30 3 ml [id number] PRN Administration SHORTNESS OF BREATH Aspirin 81 mg 07/31/19 08:00 Ecotrin 81 Mg Ec Tablet PO 08/30/19 07:59 QAM DHARA Atropine Sulfate 0.5 mg 07/30/19 17:49 Atropine Sulfate Inj 1 Mg/10 Ml Disp.Syrin IV 08/29/19 17:48 Q2M PRN HR SUSTAINED BELOW 35 Finasteride 5 mg 07/31/19 10:00 Proscar 5 Mg Tablet PO 08/30/19 09:59 DAILY DHARA Fluticasone Propionate 2 spray 07/31/19 10:00 Flonase Nasal [place] 50 Mcg/[place] 16 Gm NASL 08/30/19 09:59 DAILY DHARA Heparin Sodium (Porcine) 5,000 unit 07/29/19 22:00 07/31/19 05:49 Heparin Inj 5,000 Units/Ml 1 Ml Vial SUBCUT 08/28/19 21:59 5,000 unit Q8 DHARA Administration Latanoprost 1 drop 07/30/19 22:00 07/30/19 22:05 Xalatan 0.005% Oph Soln 2.5 Ml OU 08/29/19 21:59 1 drop QHS DHARA Administration Magnesium Hydroxide 30 ml 07/29/19 19:31 Milk Of Magnesia 30 Ml Udcup PO 08/28/19 19:30 HSP PRN FOR CONSTIPATION Montelukast Sodium 10 mg 07/30/19 18:00 07/30/19 17:18 Singulair 10 Mg Tablet PO 08/29/19 17:59 10 mg QPM DHARA Administration Psyllium Hydrophilic Mucilloid 1 packet 07/30/19 10:00 07/30/19 09:42 Metamucil-Sf Powder 5.85 Gm Packet PO 08/29/19 09:59 1 packet DAILY DHARA Administration Tamsulosin HCl 0.4 mg 07/30/19 18:00 07/30/19 17:18 Flomax 0.4 Mg Cap.Sr PO 08/29/19 17:59 0.4 mg QPM DHARA Administration Discontinued Medications Generic Name Dose Route Start Last Admin Trade Name Freq PRN Reason Stop Dose Admin Albuterol/Ipratropium 3 ml 07/30/19 02:15 07/30/19 02:59 Duoneb 3 Ml Ampul NEB 07/30/19 02:16 Not Given NOW ONE Glucagon 1 mg 07/30/19 02:15 07/30/19 02:22 Glucagen Inj 1 Mg Vial SUBCUT 07/30/19 02:16 1 mg NOW ONE Administration Sodium Chloride 1,000 mls @ 250 mls/hr 07/29/19 19:30 07/29/19 21:17 Nacl 0.9% 1000 Ml Iv Soln IV 07/29/19 23:29 Not Given NOW ONE Sodium Chloride 1,000 mls @ 250 mls/hr 07/29/19 19:45 07/30/19 06:50 Nacl 0.9% 1000 Ml Iv Soln IV Infused CONTINUOUS PRN Infusion Lactulose 20 gm 07/29/19 19:31 07/29/19 21:23 Cephulac Syrup 20 Gm/30 Ml Udcup PO 07/29/19 19:32 20 gm NOW ONE Administration Mineral Oil 133 ml 07/29/19 19:31 07/29/19 22:24 Fleet Mineral Oil Enema 133 Ml KS 07/29/19 19:32 133 ml NOW ONE Administration Mineral Oil Confirm 07/29/19 21:55 07/29/19 22:25 Fleet Mineral Oil Enema 133 Ml Administered 07/29/19 21:56 Not Given Dose 133 ml KS .STK-MED ONE Scopolamine HBr 1 each 07/30/19 16:28 07/30/19 17:20 Transderm-Scop 1.5 Mg Patch TD 07/30/19 16:29 1 each NOW ONE Administration Scopolamine HBr Confirm 07/30/19 16:53 Transderm-Scop 1.5 Mg Patch Administered 07/30/19 16:54 Dose 1 each .ROUTE .STK-MED ONE Assessment & Plan - Diagnosis (1) Near syncope Is this a current diagnosis for this admission?: Yes Plan: 83 y/o male with presyncope. He has remained asymptomatic however his telemetry shows persistent sinus bradycardia with heart rates in the 40's even when the patient is awake. During sleep his heart rate may dip into the 30'S. He had a 5- beat episode of SVT followed by a post-conversion pause and pulse in the 30's. A review of his prior outpatient v/s demonstrated heart rates in the 60's and above. Given his age and presyncopal events in the setting of severe bradycardia, I'm concerned about sick sinus syndrome. I discussed the case with Dr. Michele Egan who agreed with my plan of transferring the patient to [facility] for further evaluation for the need of PM. Recommendations: -Transfer to [facility]. -Avoid all AV nordal agents. (2) Bradycardia Is this a current diagnosis for this admission?: Yes
--- NOTE | 2019-07-31 12:22 | PDOC TRANSFER SUMMARY ---
General Admission Date/PCP: 07/29/19 19:43 ROBER SCHMID MD Admission Date: 07/29/19 Transfer Date: 07/31/19 Accepting Facility: [facility] Accepting Physician: Maryann Garnica Resuscitation Status: Full Code - Transfer Diagnosis (1) Bradycardia Is this a current diagnosis for this admission?: Yes (2) Near syncope Is this a current diagnosis for this admission?: Yes (3) Constipation Is this a current diagnosis for this admission?: Yes - Transfer Medications Home Medications: Aspirin [Adult Low Dose Aspirin EC] 81 mg PO QAM 07/30/19 Carboxymethylcellulos/Glycerin [Refresh Relieva 0.5-0.9% Drop] 1 drop OU DAILYP PRN 07/30/19 Cyanocobalamin (Vitamin B-12) [Vitamin B-12] 100 mcg PO QAM 07/30/19 Finasteride [Proscar 5 mg Tablet] 5 mg PO DAILY 07/30/19 Fluticasone Propionate [Flonase Nasal [place] 50 Mcg/[place] 16 gm] 2 spray NASL DAILY 07/30/19 Latanoprost [Xalatan 0.005% Oph Soln 2.5 ml] 1 drop OU QHS 07/30/19 Montelukast Sodium [Singulair 10 mg Tablet] 10 mg PO QPM 07/30/19 Tamsulosin HCl [Flomax 0.4 mg Cap.sr] 0.4 mg PO QPM 07/30/19 Timolol Maleate [Timoptic 0.5% Oph Soln 5 ml] 1 drop OU BID 07/30/19 Transfer Medications: Current Medications Acetaminophen (Tylenol 325 Mg Tablet) 650 mg PO Q4HP PRN PRN Reason: FOR HEADACHE OR PAIN Stop: 08/28/19 19:30 Al Hydrox/Mg Hydrox/Simethicone (Maalox Plus Susp 30 Udcup) 30 ml PO Q6HP PRN PRN Reason: HEARTBURN Stop: 08/28/19 19:30 Albuterol/Ipratropium (Duoneb 3 Ml Ampul) 3 ml NEB [id number] PRN PRN Reason: SHORTNESS OF BREATH Stop: 08/28/19 19:30 Last Admin: 07/30/19 02:10 Dose: 3 ml Documented by: Aspirin (Ecotrin 81 Mg Ec Tablet) 81 mg PO QAM DHARA Stop: 08/30/19 07:59 Last Admin: 07/31/19 09:04 Dose: 81 mg Documented by: Atropine Sulfate (Atropine Sulfate Inj 1 Mg/10 Ml Disp.Syrin) 0.5 mg IV Q2M PRN PRN Reason: HR SUSTAINED BELOW 35 Stop: 08/29/19 17:48 Finasteride (Proscar 5 Mg Tablet) 5 mg PO DAILY [facility] Stop: 08/30/19 09:59 Last Admin: 07/31/19 10:02 Dose: 5 mg Documented by: Fluticasone Propionate (Flonase Nasal [place] 50 Mcg/[place] 16 Gm) 2 spray NASL DAILY [facility] Stop: 08/30/19 09:59 Last Admin: 07/31/19 10:00 Dose: 1 spr Documented by: Heparin Sodium (Porcine) (Heparin Inj 5,000 Units/Ml 1 Ml Vial) 5,000 unit SUBCUT Q8 [facility] Stop: 08/28/19 21:59 Last Admin: 07/31/19 05:49 Dose: 5,000 unit Documented by: Latanoprost (Xalatan 0.005% Oph Soln 2.5 Ml) 1 drop OU QHS [facility] Stop: 08/29/19 21:59 Last Admin: 07/30/19 22:05 Dose: 1 drop Documented by: Magnesium Hydroxide (Milk Of Magnesia 30 Ml Udcup) 30 ml PO HSP PRN PRN Reason: FOR CONSTIPATION Stop: 08/28/19 19:30 Montelukast Sodium (Singulair 10 Mg Tablet) 10 mg PO QPM [facility] Stop: 08/29/19 17:59 Last Admin: 07/30/19 17:18 Dose: 10 mg Documented by: Psyllium Hydrophilic Mucilloid (Metamucil-Sf Powder 5.85 Gm Packet) 1 packet PO DAILY [facility] Stop: 08/29/19 09:59 Last Admin: 07/31/19 10:01 Dose: 1 packet Documented by: Tamsulosin HCl (Flomax 0.4 Mg Cap.Sr) 0.4 mg PO QPM [facility] Stop: 08/29/19 17:59 Last Admin: 07/30/19 17:18 Dose: 0.4 mg Documented by: - Allergies Allergies/Adverse Reactions: No Known Allergies Allergy (Unverified 05/19/16 00:49) Hospital Course Hospital Course: Patient is an 83-year-old male with history of BPH and glaucoma who presented to the hospital on the night of 07/29/2019 after experiencing an episode of near syncope. Apparently patient was having a bowel movement when he suddenly felt lightheaded short of breath and extremely fatigued and felt that he was about to pass out. He was brought to the emergency department at [facility]. In the ER, patient was noted to be in sinus bradycardia. EKG did not show any evidence of AV block showed no evidence of ischemic changes. Troponins were obtained x3 and were all negative. Suspected to have sick sinus node. Patient was admitted for observation. Timolol eye drops were held. However, on the crime specialist patient's heart rate has persisted in sinus bradycardia in the 40s when awake and very frequently goes into mid 30s when sleeping. His crime specialist also shows some occasions of an escape junctional beats. Patient is otherwise been asymptomatic. Denies history of symptoms of AGGIE. Echocardiogram was obtained which was normal. Cardiology was consulted and Dr. Burris, after discussing case with Dr. Michele Egan, feels that patient will need a pacemaker. As such patient is being transferred to [facility] for potential pacemaker placement. Physical Exam Vital Signs: Temp Pulse Resp BP Pulse Ox 97.3 F 42 L 14 155/73 H 100 07/31/19 11:13 07/31/19 11:13 07/31/19 11:13 07/31/19 11:13 07/31/19 11:13 Intake & Output 07/30/19 07/31/19 08/01/19 06:59 06:59 06:59 Intake Total 2350 916 360 Balance 2350 916 360 Weight 54.1 kg 54.1 kg General appearance: PRESENT: no acute distress, cooperative Neck exam: ABSENT: JVD Respiratory exam: PRESENT: clear to auscultation argenis, unlabored Cardiovascular exam: PRESENT: bradycardia, +S1, +S2. ABSENT: diastolic murmur, gallop, rubs, systolic murmur, tachycardia GI/Abdominal exam: PRESENT: soft. ABSENT: tenderness Neurological exam: PRESENT: alert, awake, oriented to person, oriented to place, oriented to time, oriented to situation Results Laboratory Results: 07/30/19 05:35 07/31/19 04:59 07/31/19 04:59 Sodium 138.6 Potassium 4.8 Chloride 106 Carbon Dioxide 31 H Anion Gap 2 L BUN 17 Creatinine 1.00 Est GFR ( Amer) > 60 Glucose 87 Calcium 9.5 Phosphorus 3.1 Magnesium 2.0 07/29/19 07/29/19 07/29/19 17:35 17:35 21:00 Creatine Kinase 80 CK-MB (CK-2) 0.97 1.16 Troponin I < 0.012 < 0.012 07/29/19 07/30/19 07/30/19 21:00 05:35 05:35 Creatine Kinase 70 56 CK-MB (CK-2) 0.92 Troponin I < 0.012 Impressions: Chest X-Ray 07/29/19 18:20 IMPRESSION: COPD. NO ACUTE RADIOGRAPHIC FINDING IN THE CHEST. Head CT 07/29/19 18:20 IMPRESSION: NORMAL BRAIN CT WITHOUT CONTRAST. EVIDENCE OF ACUTE STROKE: NO. Plan Time Spent: Less than 30 Minutes
[2019-07-31 13:46] VITALS: BP 124/66
== END 2019-07-31 14:15 | disposition short-term general hospital (02) | DRG 310 ==
LOC: ER 17:26 → EH 19:43 → OBSVTOIN 19:43 → 4S 20:52
PROVIDERS: ADMIT Internal Medicine; ATTEND Internal Medicine
DX: R00.1 Bradycardia, unspecified (principal); T50.905A Adverse effect of unspecified drugs, medicaments and biological substances, initial encounter; R55 Syncope and collapse; E03.9 Hypothyroidism, unspecified; K59.00 Constipation, unspecified; I10 Essential (primary) hypertension; R40.2412 Glasgow coma scale score 13-15, at arrival to emergency department; Z79.82 Long term (current) use of aspirin; Z79.899 Other long term (current) drug therapy
CPT/HCPCS: 36415; 70450; 71045; 80048; 80053; 81001; 82550; 82553; 83735; 84100; 84443; 84484; 85025; 93005; 93010; 93306; 94640; 99285; J1610; J1644; J3490; J7030; J7620